=== PATIENT | female | born 1930 | race Native Hawaiian/Other Pacific Islander ===

== ENCOUNTER 2018-04-06 10:43 | Outpatient (CLI) | payer OTHER ==
[2018-04-06 12:13] LABS: PLATELET COUNT 211 K/uL (152-353)
[2018-04-06 12:44] LABS: POTASSIUM 5.2 mmol/L (3.6-5.2)
== END 2018-04-06 22:04 | disposition home or self-care (01) ==
LOC: LABW 10:43
PROVIDERS: Internal Medicine
DX: N18.4 Chronic kidney disease, stage 4 (severe) (principal); Z79.899 Other long term (current) drug therapy; Z51.81 Encounter for therapeutic drug level monitoring
CPT/HCPCS: 36415; 80053; 81000; 82043; 82306; 82330; 82570; 82607; 82728; 82746; 83036; 83540; 83550; 83735; 83970; 84100; 84550; 85027; 86430

== ENCOUNTER 2018-07-31 11:52 | Outpatient (CLI) | payer OTHER ==
[2018-07-31 14:39] LABS: PLATELET COUNT 265 K/uL (152-353)
[2018-07-31 14:50] LABS: POTASSIUM 5.4 mmol/L (3.6-5.2)
== END 2018-07-31 19:07 | disposition home or self-care (01) ==
LOC: LABW 11:52
PROVIDERS: Internal Medicine
DX: N18.4 Chronic kidney disease, stage 4 (severe) (principal); Z79.899 Other long term (current) drug therapy; E53.8 Deficiency of other specified B group vitamins
CPT/HCPCS: 36415; 80053; 82306; 82607; 82746; 83970; 84100; 84439; 84443; 84550; 85027

== ENCOUNTER 2018-11-13 11:07 | Outpatient (CLI) | payer OTHER ==
[2018-11-13 11:31] LABS: PLATELET COUNT 280 K/uL (152-353)
[2018-11-13 11:55] LABS: POTASSIUM 5.4 mmol/L (3.6-5.2)
== END 2018-11-13 19:15 | disposition home or self-care (01) ==
LOC: LABW 11:07
PROVIDERS: Internal Medicine
DX: N18.4 Chronic kidney disease, stage 4 (severe) (principal); E53.8 Deficiency of other specified B group vitamins; Z79.899 Other long term (current) drug therapy
CPT/HCPCS: 36415; 80053; 82306; 82607; 82746; 83735; 83970; 84100; 84439; 84443; 84550; 85027

== ENCOUNTER 2019-03-08 11:33 | Outpatient (CLI) | payer OTHER ==
[2019-03-08 11:52] LABS: PLATELET COUNT 291 K/uL (152-353)
[2019-03-08 12:19] LABS: POTASSIUM 4.6 mmol/L (3.6-5.2)
== END 2019-03-08 20:23 | disposition home or self-care (01) ==
LOC: LABW 11:33
PROVIDERS: Internal Medicine
DX: N18.4 Chronic kidney disease, stage 4 (severe) (principal); E53.8 Deficiency of other specified B group vitamins; Z79.899 Other long term (current) drug therapy
CPT/HCPCS: 36415; 80053; 82306; 82746; 83735; 83970; 84100; 84439; 84443; 84550; 85027

== ENCOUNTER 2019-06-04 11:04 | Outpatient (CLI) | payer OTHER ==
[2019-06-04 11:40] LABS: PLATELET COUNT 216 K/uL (152-353)
[2019-06-04 11:51] LABS: POTASSIUM 5.4 mmol/L (3.6-5.2)
== END 2019-06-04 21:45 | disposition home or self-care (01) ==
LOC: LABW 11:04
PROVIDERS: Internal Medicine
DX: I12.9 Hypertensive chronic kidney disease with stage 1 through stage 4 chronic kidney disease, or unspecified chronic kidney disease (principal); N18.4 Chronic kidney disease, stage 4 (severe); I25.10 Atherosclerotic heart disease of native coronary artery without angina pectoris; M1A.0720 Idiopathic chronic gout, left ankle and foot, without tophus (tophi); E55.9 Vitamin D deficiency, unspecified
CPT/HCPCS: 36415; 80053; 81000; 82043; 82306; 82570; 83735; 84100; 84155; 84443; 84550; 85027

== ENCOUNTER 2019-07-01 08:08 | Outpatient (CLI) | payer OTHER | END 2019-07-01 22:30 | disposition home or self-care (01) | LOC: NM 08:08 | DX: I25.10 Atherosclerotic heart disease of native coronary artery without angina pectoris (principal) | CPT/HCPCS: 93306; A9500; J2785 ==